=== PATIENT | female | born 1970 | race Caucasian/White ===

== ENCOUNTER 2016-09-05 15:45 | Emergency (ER) | payer OTHER ==
[~2016-09-05] VITALS: Ht 160 cm; Wt 60.3 kg
[2016-09-05] MEDS ORDERED: IBUPROFEN 600 MG TAB As Ordered ONE (17:04)
[2016-09-05] MEDS ORDERED: IBUPROFEN 600 MG TAB PO ONE (17:15)
--- NOTE | 2016-09-05 19:00 | REPUSA ---
CT of the abdomen and pelvis without contrast Clinical statement: Pain. Hematuria. Technique: Multiple axial CT images were obtained from the base of the lungs to the floor of the pelv is utilizing 5 mm axial slices without administration of contrast. Coronal and sagittal reconstructio ns were also obtained. No comparison is available. Findings: Chest: The visualized lung bases are clear. Abdomen: The kidneys are normal in size bilaterally. There is no evidence of hydronephrosis or nephro lithiasis. The liver, spleen, pancreas, and adrenal glands are unremarkable. The aorta demonstrates n ormal caliber and contour. There is no abdominal lymphadenopathy or ascites. Pelvis: The bowel is unremarkable, with no obstructive or inflammatory changes. Moderate sigmoid dive rticulosis is noted, without evidence of diverticulitis. The appendix is normal. The urinary bladder is within normal limits. There is no pelvic lymphadenopathy or ascites. The other pelvic structures a ppear unremarkable. Bones: There are no suspicious osseous abnormalities seen. Impression: Unremarkable CT examination of the abdomen and pelvis. No evidence of hydronephrosis or n ephrolithiasis. No other focal abnormalities.
[2016-09-05 19:25] VITALS: BP 115/69
== END 2016-09-05 19:28 | disposition home or self-care (01) ==
LOC: M ED 18:25
DX: S29.012A Strain of muscle and tendon of back wall of thorax, initial encounter (principal); X58.XXXA Exposure to other specified factors, initial encounter; Y92.89 Other specified places as the place of occurrence of the external cause; Y93.89 Activity, other specified; Y99.8 Other external cause status; F17.210 Nicotine dependence, cigarettes, uncomplicated; Z88.1 Allergy status to other antibiotic agents

== ENCOUNTER 2016-11-28 08:06 | Emergency (ER) | payer OTHER ==
[~2016-11-28] VITALS: Ht 160 cm; Wt 60.3 kg
[2016-11-28] MEDS ORDERED: AUGM875T28 PO (08:17)
[2016-11-28] MEDS ORDERED: KETOROLAC 60 MG/2 ML VIAL (J1885) IM ONE (08:30)
--- NOTE | 2016-11-28 09:17 | REP ---
Clinical: Left pelvic pain . Technique: Transabdominal pelvic ultrasound with color Doppler evaluation of the ovaries. Findings: Bladder is completely collapsed. Normal anteverted uterus measures 8.9 x 5.4 x 6.4 cm . The endometrial complex measures 8.0 mm thickness. No discrete uterine or endometrial abnormalities are appreciated. Bilateral ovaries are normal in appearance and vascularity without evidence for torsion. Right ovary measures 4.2 x 2.1 x 3.6 cm with 1.6 cm dominant follicle ; R I = 0.51 . Left ovary measures 3.7 x 2.0 x 2.5 cm ; R I = 0.61 . No pelvic fluid or adnexal mass lesion. Left lower quadrant pain may be related to non peristaltic bowel identified during examination. Impression: 1. Normal uterus and bilateral ovaries. No evidence for torsion. 2. The patient's pain may be related to prominent loop loop of bowel identified without peristalsis. Correlation is recommended and CT may be warranted for further investigation. Signed by Lee Spicer MD 11/28/2016 09:08 A
--- NOTE | 2016-11-28 09:56 | REP ---
Clinical: Left lower quadrant pain. Comparison: 09/05/2016. Findings: Mural thickening involving the proximal sigmoid colon with diverticula and pericolonic stranding is most compatible with acute diverticulitis (images 82 - 105). No obstruction. No free air to suggest perforation. No drainable collection/abscess noted. The remainder of the small large bowel is grossly unremarkable for the normal terminal ileum and appendix. Liver, spleen, pancreas, bilateral adrenal glands and kidneys are normal. The patient is status post cholecystectomy. Pelvis demonstrates normal bladder and age-appropriate uterus/adnexa. No ascites. No free air. No adenopathy. Abdominal aorta without aneurysm. Surrounding musculoskeletal structures are intact. Lung bases are clear. Impression: Acute sigmoid diverticulitis. No evidence for bowel obstruction, perforation, or drainable collection/abscess. Signed by Lee Spicer MD 11/28/2016 09:48 A
[2016-11-28] MEDS ORDERED: FLAG500T PO (10:31)
[2016-11-28] MEDS ORDERED: CIPR-249 PO (10:31)
[2016-11-28] MEDS ORDERED: ULTR50TA8 PO (10:31)
[2016-11-28] MEDS ORDERED: ZOFR4TAB3 PO (10:31)
[2016-11-28 10:37] VITALS: BP 103/64
== END 2016-11-28 10:37 | disposition home or self-care (01) ==
LOC: M ED 08:06
DX: K57.30 Diverticulosis of large intestine without perforation or abscess without bleeding (principal); F17.200 Nicotine dependence, unspecified, uncomplicated; Z88.1 Allergy status to other antibiotic agents

== ENCOUNTER 2017-04-24 20:26 | Emergency (ER) | payer OTHER ==
[~2017-04-24] VITALS: Ht 160 cm; Wt 59.1 kg
[~2017-04-24 20:26] MED LIST: AUGM875T28 PO; CIPR-249 PO; FLAG500T PO; ULTR50TA8 PO; ZOFR4TAB3 PO
[2017-04-24] MEDS ORDERED: NS 1,000 ML IV ONE (21:00)
[2017-04-24] MEDS ORDERED: ONDANSETRON 4MG/2ML VIAL (J2405) IV ONE (21:00)
[2017-04-24] MEDS ORDERED: MORPHINE 4 MG/ML 1ML SYRINGE IV PRN (21:00)
[2017-04-24] MEDS ORDERED: PANTOPRAZOLE 40MG INJ (PROTONIX) (C9113) IV ONE (21:00)
[2017-04-24 21:18] LABS: BASO % 0.3 % (0.0-1.0); EOS # 0.4 10^3/uL (0.0-0.50); EOS % 4.1 % (0.0-3.0); IMMATURE GRANULOCYTE % 0.3 % (0-0); LYMPH # 2.9 10^3/uL (1.5-4.5); MEAN CORPUSCULAR HEMOGLOBIN 32.3 pg (27.0-33.0); MONO # 0.6 10^3/uL (0.0-0.8); MONO % 6.3 % (0.0-5.0); NEUTROPHILS # 4.9 10^3/uL (1.8-7.7); PLATELET COUNT, AUTOMATED 276 10^3/uL (150-450); RED CELL DISTRIBUTION WIDTH 12.7 % (11.5-14.5); WHITE BLOOD COUNT 8.8 10^3/uL (4.0-10.0)
[2017-04-24 21:28] LABS: INR 0.94
[2017-04-24 21:45] LABS: ALBUMIN 3.5 GM/DL (3.2-5.2); ALBUMIN/GLOBULIN RATIO 1.21 (1.00-1.93); ALKALINE PHOSPHATASE 36 U/L (45-117); ALT/SGPT 19 U/L (12-78); ANION GAP 4 MEQ/L (8-16); AST/SGOT 9 U/L (7-37); BILIRUBIN,DIRECT 0.1 MG/DL (0.0-0.2); BILIRUBIN,TOTAL 0.4 MG/DL (0.2-1.0); BLOOD UREA NITROGEN 8 MG/DL (7-18); CALCIUM LEVEL 8.5 MG/DL (8.5-10.1); CARBON DIOXIDE LEVEL 31 MEQ/L (21-32); CHLORIDE LEVEL 105 MEQ/L (98-107); CREATININE FOR GFR 0.49 MG/DL (0.55-1.02); GLOMERULAR FILTRATION RATE > 60.0 (>58); GLUCOSE, FASTING 98 MG/DL (70-105); POTASSIUM SERUM 4.2 MEQ/L (3.5-5.1); SODIUM LEVEL 140 MEQ/L (136-145); TOTAL PROTEIN 6.4 GM/DL (6.4-8.2)
--- NOTE | 2017-04-24 22:30 | REPUSA ---
CT of the abdomen and pelvis without contrast Clinical statement: Pain. Technique: Multiple axial CT images were obtained from the base of the lungs to the floor of the pelv is utilizing 5 mm axial slices without administration of contrast. Coronal and sagittal reconstructio ns were also obtained. Comparison: 09/05/2016. Findings: Chest: The visualized lung bases are clear. Abdomen: The kidneys are normal in size bilaterally. There is no evidence of hydronephrosis or nephro lithiasis. The liver, spleen, pancreas, and adrenal glands are unremarkable. The aorta demonstrates n ormal caliber and contour. There is no abdominal lymphadenopathy or ascites. Pelvis: The bowel is unremarkable, with no obstructive or inflammatory changes. The appendix is concetta l. The urinary bladder is within normal limits. There is no pelvic lymphadenopathy or ascites. The ot her pelvic structures appear unremarkable. Bones: There are no suspicious osseous abnormalities seen. Impression: Unremarkable CT examination of the abdomen and pelvis.
[2017-04-24] MEDS ORDERED: PROT1TAB2 PO (23:08)
[2017-04-24] MEDS ORDERED: ZOFR4TAB3 PO (23:08)
[2017-04-24 23:17] VITALS: BP 110/56
== END 2017-04-24 23:22 | disposition home or self-care (01) ==
LOC: M ED 20:26
DX: K52.9 Noninfective gastroenteritis and colitis, unspecified (principal); K57.90 Diverticulosis of intestine, part unspecified, without perforation or abscess without bleeding; F17.200 Nicotine dependence, unspecified, uncomplicated; Z88.1 Allergy status to other antibiotic agents
CPT/HCPCS: 36415; 74176; 80048; 80076; 81001; 83690; 85025; 85610; 87086; 96361; 96374; 96375; 99284; C9113; J2405

== ENCOUNTER → 2018-06-09 | Outpatient (REF) ==
[~2018-06-09] MED LIST changes: +PROT1TAB2 PO; +ZOFR4TAB14 PO; -ZOFR4TAB3 PO
[2018-06-09 13:33] LABS: RUBELLA IgG QUALITATIVE IMMUNE (IMMUNE)
== END ==
LOC: M LAB 12:04
PROVIDERS: ATTEND Nurse Practitioner Adult Health
DX: Z02.89 Encounter for other administrative examinations (principal)

== ENCOUNTER → 2018-06-11 | Outpatient (REF) | payer OTHER | LOC: M SFHCWAGY 09:38 | PROVIDERS: ATTEND Nurse Practitioner Women's Health | DX: Z12.4 Encounter for screening for malignant neoplasm of cervix (principal); R87.5 Abnormal microbiological findings in specimens from female genital organs ==

== ENCOUNTER → 2018-06-14 | Outpatient (CLI) | payer OTHER ==
--- NOTE | 2018-06-14 18:53 | REPMRS ---
Patient History The patient states she had a clinical breast exam in 06/2018. No known family history of cancer. Digital Woman Screen Mammo: June 14, 2018 - Exam #: [id number] Bilateral CC and MLO view(s) were taken. Technologist: Sallie Varghese Technologist FINDINGS: There are scattered fibroglandular densities. There is a 1.1 cm well-circumscribed oval-shaped nodule in the upper outer quadrant of the right breast which merits further evaluation. This may be a lymph node. There is no other evidence of dominant mass, architectural distortion, or clustered microcalcification typical of malignancy. 3-D tomosynthesis shows no additional findings. Assessment: BI-RADS/ACR category 0 mammogram, incomplete. BIRADS/ACR category zero mammogram, incomplete. Additional imaging and/or prior images needed. Recommendation Ultrasound and special view mammogram of the right breast. This patient's Lifetime Breast Cancer RIsk is estimated at 13.4 %. This mammogram was interpreted with the aid of an FDA-approved computer-aided dectection system. Electronically Signed By: Arthur Torres MD 06/14/18 [id number]
--- NOTE | 2018-06-15 05:43 | REP ---
Clinical: Pelvic pain and abnormal menstrual cycles. Technique: Transabdominal pelvic ultrasound followed by transvaginal examination for better evaluation of the endometrium and adnexa with color Doppler evaluation of the ovaries. Findings: Bladder is unremarkable and measures 11.7 x 10.1 x 5.3 cm. Normal anteverted uterus measures 9.5 x 4.5 x 5.6 cm. The endometrial complex measures 5.9 mm thickness. No discrete uterine or endometrial abnormalities are appreciated. Incidental subcentimeter Nabothian cysts identified. Bilateral ovaries are normal in appearance and vascularity without evidence for torsion. Right ovary measures 3.3 x 2.3 x 3.0 cm with 2.1 cm physiologic cyst; R I = 0.57. Left ovary measures 2.2 x 0.9 x 1.4 cm; R I = 0.51. No pelvic fluid or adnexal mass lesion noted . Impression: 1. Subcentimeter Nabothian cysts noted. 2. Otherwise normal pelvic ultrasound.
== END ==
LOC: M WHC 10:54
PROVIDERS: ATTEND Nurse Practitioner Women's Health
DX: R92.2 Inconclusive mammogram (principal); N88.8 Other specified noninflammatory disorders of cervix uteri; N92.1 Excessive and frequent menstruation with irregular cycle; N92.0 Excessive and frequent menstruation with regular cycle; N94.10 Unspecified dyspareunia

== ENCOUNTER → 2018-06-18 | Outpatient (CLI) | payer OTHER ==
--- NOTE | 2018-06-18 18:41 | REP ---
Digital diagnostic unilateral right breast mammography with CAD and focused right breast sonography: History: Initial screening mammography was BIRADS category 0 because of a well-circumscribed 12 mm nodule in the upper outer quadrant of the right breast. Diagnostic imaging was recommended. Mammographic findings: Magnified focal spot compression CC, true ML, and MLO views of the right breast were obtained. A well-circumscribed 11 mm nodule is confirmed. It is relatively low in attenuation. No spiculation or microcalcification is seen. No other mammographic finding. Sonographic findings: The right breast is scanned from 9 o'clock to 12 o'clock through the upper outer quadrant. At the nipple, there are one or two prominent ducts. At 11 o'clock, 6 cm from the nipple there is an isoechoic area 1.0 x 0.8 x 0.5 cm. It is not clear that this corresponds with the mammographic opacity as it is isoechoic and most likely is just a normal breast lobule. No cyst, node or mass is seen. Impression: BIRADS category 4 suspicious right breast imaging. Mammographically apparent nodule upper outer quadrant right breast with no definite sonographic correlate. Stereotactic needle biopsy is recommended. BI-RADS/ACR category 4 mammogram. Suspicious abnormality - biopsy should be considered. Usually requires biopsy. This mammogram was interpreted with the aid of an FDA-approved computer-aided detection system. The patient states she had a clinical breast exam in June 2018. The patient letter being requested is m4 . Electronically Signed by Chay Torres MD 06/18/2018 08:07 P
== END ==
LOC: M RAD 14:08
PROVIDERS: ATTEND Nurse Practitioner Women's Health
DX: R92.2 Inconclusive mammogram (principal)

== ENCOUNTER → 2018-06-19 | Outpatient (REF) | payer OTHER | LOC: M LAB REF 14:36 | PROVIDERS: ATTEND Physician Assistant | DX: J02.9 Acute pharyngitis, unspecified (principal) ==

== ENCOUNTER → 2018-06-28 | Outpatient (REF) | payer OTHER | LOC: M SFHCWAGY 15:04 | PROVIDERS: ATTEND Nurse Practitioner Women's Health | DX: R87.613 High grade squamous intraepithelial lesion on cytologic smear of cervix (HGSIL) (principal); R87.810 Cervical high risk human papillomavirus (HPV) DNA test positive ==

== ENCOUNTER 2018-09-10 09:26 | Day surgery (SDC) | payer OTHER ==
[~2018-09-10] VITALS: Ht 162.6 cm; Wt 66.6 kg
[~2018-09-10 09:26] MED LIST changes: +MELA10CA PO
[2018-09-10 10:08] LABS: HEMATOCRIT 46.9 % (36.0-47.0); HEMOGLOBIN 15.8 g/dl (12.0-15.5); MEAN CORPUSCULAR HGB CONC 33.7 g/dl (32.0-36.5); MEAN CORPUSCULAR VOLUME 94.9 fl (80.0-96.0); PLATELET COUNT, AUTOMATED 312 10^3/uL (150-450); RED BLOOD COUNT 4.94 10^6/uL (4.00-5.40); WHITE BLOOD COUNT 10.3 10^3/uL (4.0-10.0)
[2018-09-10] MEDS ORDERED: LR 1,000 ML IV ONE (10:30)
[2018-09-10] MEDS ORDERED: PROPOFOL 200 MG/20 ML VIAL As Ordered ONE (10:47)
[2018-09-10] MEDS ORDERED: LIDOCAINE 2% INJ 100 MG/5 ML SDV (FOR ANES.) As Ordered ONE (10:47)
[2018-09-10] MEDS ORDERED: dexameTHASONE 4 MG/ML 1ML VIAL (J1100) As Ordered ONE (10:47)
[2018-09-10] MEDS ORDERED: ONDANSETRON 4MG/2ML VIAL (J2405) As Ordered ONE (10:47)
[2018-09-10] MEDS ORDERED: ROCURONIUM BROMIDE 50 MG/5 ML VIAL As Ordered ONE (10:47)
[2018-09-10] MEDS ORDERED: fentaNYL 250 MCG/5 ML INJECTION (J3010) As Ordered ONE (10:48)
[2018-09-10] MEDS ORDERED: MIDAZOLAM INJ 2 MG/2 ML VIAL (J2250) As Ordered ONE (10:48)
[2018-09-10] MEDS ORDERED: METHYLENE BLUE 0.5% (5MG/ML) 10 ML AMP (PROVAYBLUE)(Q9968 PER 1MG) As Ordered ONE ×2 (11:36→11:41)
[2018-09-10] MEDS ORDERED: BUPIVACAINE HCL 0.25% 10 ML VIAL As Ordered ONE (11:36)
[2018-09-10] MEDS ORDERED: OXYC1TAB23 PO (11:38)
[2018-09-10 11:40] VITALS: BP 129/76
[2018-09-10] MEDS ORDERED: IBUP-1022 PO (11:40)
[2018-09-10] MEDS ORDERED: SUGAMMADEX SODIUM 500 MG/5 ML VIAL (BRIDION) As Ordered ONE (12:29)
[2018-09-10] MEDS ORDERED: KETOROLAC 60 MG/2 ML VIAL (J1885) As Ordered ONE (12:52)
[2018-09-10] MEDS ORDERED: LR 1,000 ML IV SCH ×2 (13:30)
[2018-09-10] MEDS ORDERED: MORPHINE 4 MG/ML 1ML VIAL/SYRINGE (J2270) IV PRN (13:30)
[2018-09-10] MEDS ORDERED: PERCOCET 5MG/325MG TAB PO PRN (13:30)
[2018-09-10] MEDS ORDERED: KETOROLAC 30 MG/ML VIAL (J1885) IV PRN (13:30)
[2018-09-10] MEDS ORDERED: ONDANSETRON 4MG/2ML VIAL (J2405) IV PRN ×2 (13:30)
[2018-09-10] MEDS ORDERED: HYDROMORPHONE HCL 0.5 MG/ 0.5 ML SYRINGE (J1170 PER 1) IV PRN (13:30)
[2018-09-10] MEDS: PERCOCET 5MG/325MG TAB PO PRN ×3 (13:45→20:52)
[2018-09-10] MEDS: fentaNYL 100 MCG/2 ML INJECTION (J3010) IV PRN ×4 (13:45→14:00)
[2018-09-10 15:10] VITALS: BP 158/84
[2018-09-10 15:40] VITALS: BP 116/64
[2018-09-10 16:40] VITALS: BP 111/67
[2018-09-10 17:30] VITALS: BP 112/63
--- NOTE | 2018-09-10 17:51 | RO ---
DATE OF PROCEDURE: 09/10/2018 PREPROCEDURE DIAGNOSES: Menorrhagia, severe cervical dysplasia. POSTPROCEDURE DIAGNOSES: Menorrhagia, severe cervical dysplasia. OPERATIVE PROCEDURES: Robotic assisted laparoscopic hysterectomy, bilateral salpingectomy. SURGEON: Toi Matthews MD CORRECTIONAL OFFICER: Tamar Vergara NP ANESTHESIA: General endotracheal. ESTIMATED BLOOD LOSS: 100 mL. URINE OUTPUT: 100 mL. FINDINGS: Normal uterus. Fallopian tubes with evidence of prior tubal sterilization. Normal ovaries. DESCRIPTION OF PROCEDURE: The patient was taken to the operating room where general endotracheal anesthesia was induced. She was prepped and draped in a sterile fashion in the dorsal lithotomy position. A Hassan catheter was placed. A VCare uterine manipulator was placed. A periumbilical incision was made with a scalpel. A Veress needle was placed through this incision while tenting up on the skin of the abdomen. Intraabdominal location of the Veress needle was assessed with the use of saline filled syringe. The pneumoperitoneum was created. The Veress needle was removed. An 8 mm trocar using NONO was inserted through this incision. Three 8 mm suprapubic ports were placed under direct visualization. The patient was placed in Trendelenburg position. The Da Wilma surgical robot was docked to the ports. Using the bipolar fenestrated device as well as the Vessel Sealer, broad ligament attachments at the fallopian tubes were coagulated and incised. The utero-ovarian ligaments and round ligaments were coagulated and incised. The anterior and posterior leaves of the broad ligament were . A bladder flap was created. The uterine vessels were coagulated and incised. Colpotomy was created with the Monopolar Endo Lakhwinder in the upper vagina at the level of the VCare cup. This was extended circumferentially around the upper vagina. Specimen containing the uterus, cervix, and both fallopian tubes was removed through the vagina. The vaginal cuff was closed with #1 V-Loc suture in a running fashion. The pelvis was irrigated with good hemostasis noted. The patient was given methylene blue dye intravenously. Cystoscopy was performed using the 70 degrees cystoscope. Bilateral ureteral jets were identified. There was no evidence of injury to the bladder. All instruments were removed. Sponge, instrument and needle counts were correct. Tamar Vergara NP assisted in all aspects of the procedure from beginning to end. She assisted with positioning the patient, insertion of the ports. She manipulated the uterus throughout the procedure, removed the specimens at the end of the procedure and subsequently helped to close and move the patient.
[2018-09-10] MEDS: DOCUSATE SODIUM 100 MG CAP PO SCH (20:51)
[2018-09-10 22:00] VITALS: BP 120/63
[2018-09-11] MEDS: PERCOCET 5MG/325MG TAB PO PRN ×2 (04:17→09:10)
[2018-09-11 06:00] VITALS: BP 89/51
[2018-09-11] MEDS: DOCUSATE SODIUM 100 MG CAP PO SCH (09:09)
== END 2018-09-11 11:01 | disposition home or self-care (01) ==
LOC: M SDC 09:26 → M MSPAV 14:34 → M SDC 09-11 11:01
PROVIDERS: ATTEND Specialist
DX: D06.9 Carcinoma in situ of cervix, unspecified (principal); N92.0 Excessive and frequent menstruation with regular cycle; N72 Inflammatory disease of cervix uteri; Z72.0 Tobacco use; Z88.1 Allergy status to other antibiotic agents
CPT/HCPCS: 36415; 58571; 85027; 86850; 86900; 86901; 88307; J0690; J1100; J1885; J2250; J2405; J3010; Q9968

== ENCOUNTER → 2019-04-27 | Outpatient (REF) | payer OTHER ==
[~2019-04-27] MED LIST changes: +IBUP-1022 PO; +OXYC1TAB23 PO
== END ==
LOC: M LAB REF 15:58
PROVIDERS: ATTEND Physician Assistant
DX: J03.90 Acute tonsillitis, unspecified (principal)

== ENCOUNTER → 2019-05-13 | Outpatient (REF) | payer OTHER ==
[2019-05-13 13:47] LABS: BASO # 0.1 10^3/uL (0.0-0.2); BASO % 0.5 % (0.0-1.0); EOS # 0.3 10^3/uL (0.0-0.5); EOS % 2.4 % (0.0-3.0); HEMATOCRIT 47.3 % (36.0-47.0); HEMOGLOBIN 14.9 g/dl (12.0-15.5); LYMPH # 2.8 10^3/uL (1.5-5.0); LYMPH % 26.9 % (24.0-44.0); MEAN CORPUSCULAR HEMOGLOBIN 31.2 pg (27.0-33.0); MEAN CORPUSCULAR HGB CONC 31.5 g/dl (32.0-36.5); MONO # 0.4 10^3/uL (0.0-0.8); MONO % 3.9 % (0.0-5.0); NEUTROPHILS # 6.9 10^3/uL (1.5-8.5); NEUTROPHILS % 65.9 % (36.0-66.0); PLATELET COUNT, AUTOMATED 458 10^3/uL (150-450); RED BLOOD COUNT 4.78 10^6/uL (4.00-5.40); WHITE BLOOD COUNT 10.5 10^3/uL (4.0-10.0)
[2019-05-15 00:06] LABS: CYTOMEGALOVIRUS IgM ANTIBODY <30.0 AU/mL (0.0-29.9); EBV VIRAL CAPSID AG IgG >600.0 U/mL (0.0-17.9); EBV VIRAL CAPSID AG IgM <36.0 U/mL (0.0-35.9)
== END ==
LOC: M LABDRWAD 12:27
PROVIDERS: ATTEND Physician Assistant
DX: R53.83 Other fatigue (principal)

== ENCOUNTER → 2022-06-10 | Outpatient (CLI) | payer OTHER ==
[2022-06-10 07:45] LABS: BASO % 0.3 % (0.0-1.0); EOS # 0.2 10^3/uL (0.0-0.5); EOS % 2.7 % (0.0-3.0); HEMATOCRIT 41.1 % (36.0-47.0); HEMOGLOBIN 13.5 g/dl (12.0-15.5); LYMPH # 2.3 10^3/uL (1.5-5.0); LYMPH % 36.3 % (24.0-44.0); MEAN CORPUSCULAR HEMOGLOBIN 30.9 pg (27.0-33.0); MEAN CORPUSCULAR HGB CONC 32.8 g/dl (32.0-36.5); MEAN CORPUSCULAR VOLUME 94.1 fl (80.0-96.0); MONO # 0.4 10^3/uL (0.0-0.8); MONO % 6.4 % (2.0-8.0); NEUTROPHILS # 3.4 10^3/uL (1.5-8.5); NEUTROPHILS % 54.1 % (36.0-66.0); PLATELET COUNT, AUTOMATED 250 10^3/uL (150-450); RED BLOOD COUNT 4.37 10^6/uL (4.00-5.40); WHITE BLOOD COUNT 6.3 10^3/uL (4.0-10.0)
[2022-06-10 08:09] LABS: ALBUMIN 3.8 G/DL (3.2-5.2); ALKALINE PHOSPHATASE 43 U/L (46-116); ALT/SGPT 16 U/L (7.0-40); AST/SGOT 11 U/L (<34); BILIRUBIN,TOTAL 0.8 MG/DL (0.3-1.2); BLOOD UREA NITROGEN 13 MG/DL (9-23); CALCIUM LEVEL 9.4 MG/DL (8.5-10.1); CARBON DIOXIDE LEVEL 30 MMOL/L (20-31); CHLORIDE LEVEL 104 MMOL/L (98-107); CHOLESTEROL LEVEL 210 MG/DL (<200); CHOLESTEROL RISK RATIO 4.02 (<5); CREATININE FOR GFR 0.67 MG/DL (0.55-1.30); GLOMERULAR FILTRATION RATE > 60.0 (>51); GLUCOSE, FASTING 95 MG/DL (60-100); HDL CHOLESTEROL 52.2 MG/DL (>40); LDL CHOLESTEROL 137.6 MG/DL (<100); NON-HDL-C 158 MG/DL; POTASSIUM SERUM 5.2 MMOL/L (3.5-5.1); SODIUM LEVEL 138 MMOL/L (136-145); TOTAL PROTEIN 6.7 G/DL (5.7-8.2); TRIGLYCERIDES LEVEL 101 MG/DL (<150)
[2022-06-10 08:10] LABS: FREE T4 1.02 NG/DL (0.89-1.76); THYROID STIMULATING HORMONE 1.445 uIU/ML (0.55-4.78)
[2022-06-10 08:11] LABS: LUTEINIZING HORMONE 75.5 mIU/ML; PROLACTIN 6.07 NG/ML; TOTAL 25(OH) VITAMIN D 20.4 NG/ML (20.0-100.0)
== END ==
LOC: M LAB 07:12
PROVIDERS: ATTEND Physician Assistant
DX: R23.2 Flushing (principal); Z83.3 Family history of diabetes mellitus; Z68.26 Body mass index [BMI] 26.0-26.9, adult

== ENCOUNTER 2022-07-05 17:00 | Emergency (ER) | payer OTHER ==
[~2022-07-05] VITALS: Ht 160 cm; Wt 65.0 kg
[2022-07-05] MEDS ORDERED: ONDANSETRON 4MG 2ML VIAL IV ONE (17:25)
[2022-07-05] MEDS ORDERED: NS 1,000 ML IV ONE ×2 (17:25→19:50)
[2022-07-05] MEDS ORDERED: MORPHINE 4 MG/ML 1ML VIAL IV ONE ×2 (17:25→19:10)
[2022-07-05 18:14] LABS: BASO % 0.2 % (0.0-1.0); EOS # 0.1 10^3/uL (0.0-0.5); HEMATOCRIT 46.2 % (36.0-47.0); HEMOGLOBIN 15.3 g/dl (12.0-15.5); LYMPH # 0.6 10^3/uL (1.5-5.0); LYMPH % 5.8 % (24.0-44.0); MEAN CORPUSCULAR HEMOGLOBIN 31.2 pg (27.0-33.0); MEAN CORPUSCULAR HGB CONC 33.1 g/dl (32.0-36.5); MEAN CORPUSCULAR VOLUME 94.3 fl (80.0-96.0); MONO # 0.6 10^3/uL (0.0-0.8); MONO % 5.6 % (2.0-8.0); NEUTROPHILS # 9.4 10^3/uL (1.5-8.5); PLATELET COUNT, AUTOMATED 276 10^3/uL (150-450); WHITE BLOOD COUNT 10.8 10^3/uL (4.0-10.0)
[2022-07-05] MEDS ORDERED: ISOVUE-370 76% 100ML VIAL As Ordered ONE (18:24)
[2022-07-05 18:39] LABS: ALBUMIN 3.9 G/DL (3.2-5.2); BILIRUBIN,DIRECT 0.4 MG/DL (<0.4); BILIRUBIN,TOTAL 1.7 MG/DL (0.3-1.2); TOTAL PROTEIN 7.3 G/DL (5.7-8.2)
[2022-07-05 18:45] LABS: RSV AMPLIFICATION NEGATIVE (NEGATIVE)
[2022-07-05] MEDS ORDERED: CIPROFLOXACIN 500MG TABLET PO ONE (19:10)
[2022-07-05] MEDS ORDERED: metroNIDAZOLE (FLAGYL) 500MG TABLET PO ONE (19:10)
[2022-07-05] MEDS ORDERED: CIPR-249 PO (19:25)
[2022-07-05] MEDS ORDERED: PERC5TAB12 PO (19:25)
[2022-07-05] MEDS ORDERED: METR-265 PO (19:25)
[2022-07-05 19:55] VITALS: BP 110/60
[2022-07-05] MEDS ORDERED: OXYCODONE/APAP 5MG/325MG(HOME DOSE PACK) PO ONE (20:25)
== END 2022-07-05 20:59 | disposition home or self-care (01) ==
LOC: M ED 17:00
DX: K57.30 Diverticulosis of large intestine without perforation or abscess without bleeding (principal); K52.9 Noninfective gastroenteritis and colitis, unspecified; F17.200 Nicotine dependence, unspecified, uncomplicated; F10.10 Alcohol abuse, uncomplicated; Z88.1 Allergy status to other antibiotic agents; Z91.018 Allergy to other foods; Z79.2 Long term (current) use of antibiotics; Z79.899 Other long term (current) drug therapy
CPT/HCPCS: 74177; 80047; 80076; 83605; 83690; 85025; 87631; 96361; 96374; 96375; 99284; J2270; J2405

== ENCOUNTER 2022-09-04 07:31 | Day surgery (SDC) | payer OTHER ==
[~2022-09-04] VITALS: Ht 160 cm; Wt 67.1 kg
[~2022-09-04 07:31] MED LIST changes: +LIDOCAINE 2% 100MG/5ML SDV (FOR ANES.) As Ordered ONE; +METR-265 PO; +NS 1,000 ML IV ONE; +PERC5TAB12 PO; +[UNRECOGNIZED DRUG - OTHER] PO; +propofoL 200 MG/20 ML VIAL As Ordered ONE
[2022-09-04 09:08] VITALS: BP 98/67
== END 2022-09-04 09:23 | disposition home or self-care (01) ==
LOC: M OPP 07:31
PROVIDERS: ATTEND Surgery
DX: K64.2 Third degree hemorrhoids (principal); K57.30 Diverticulosis of large intestine without perforation or abscess without bleeding; K57.32 Diverticulitis of large intestine without perforation or abscess without bleeding; K52.89 Other specified noninfective gastroenteritis and colitis; Z88.2 Allergy status to sulfonamides; Z91.018 Allergy to other foods

== ENCOUNTER → 2022-09-10 | Outpatient (CLI) | payer OTHER ==
[~2022-09-10] MED LIST changes: -LIDOCAINE 2% 100MG/5ML SDV (FOR ANES.) As Ordered ONE; -NS 1,000 ML IV ONE; -propofoL 200 MG/20 ML VIAL As Ordered ONE
== END ==
LOC: M ADAMS 14:26
PROVIDERS: ATTEND Physician Assistant
DX: M25.511 Pain in right shoulder (principal)

== ENCOUNTER → 2022-10-02 | Outpatient (CLI) | payer OTHER | LOC: M RAD 10:39 | PROVIDERS: ATTEND Orthopaedic Surgery | DX: M25.511 Pain in right shoulder (principal); M67.813 Other specified disorders of tendon, right shoulder; M25.711 Osteophyte, right shoulder ==

== ENCOUNTER 2023-01-06 13:21 | Emergency (ER) | payer OTHER ==
[~2023-01-06] VITALS: Ht 162.6 cm; Wt 71.8 kg
[2023-01-06] MEDS ORDERED: ISOVUE-370 76% 100ML VIAL As Ordered ONE (14:33)
[2023-01-06 14:41] LABS: BASO % 0.3 % (0.0-1.0); EOS # 0.1 10^3/uL (0.0-0.5); EOS % 1.9 % (0.0-3.0); HEMATOCRIT 39.9 % (36.0-47.0); HEMOGLOBIN 13.6 g/dl (12.0-15.5); LYMPH # 2.3 10^3/uL (1.5-5.0); LYMPH % 32.7 % (24.0-44.0); MEAN CORPUSCULAR HEMOGLOBIN 32.1 pg (27.0-33.0); MEAN CORPUSCULAR HGB CONC 34.1 g/dl (32.0-36.5); MEAN CORPUSCULAR VOLUME 94.1 fl (80.0-96.0); MONO # 0.4 10^3/uL (0.0-0.8); MONO % 6.1 % (2.0-8.0); NEUTROPHILS # 4.1 10^3/uL (1.5-8.5); NEUTROPHILS % 58.6 % (36.0-66.0); PLATELET COUNT, AUTOMATED 277 10^3/uL (150-450); RED BLOOD COUNT 4.24 10^6/uL (4.00-5.40); WHITE BLOOD COUNT 6.9 10^3/uL (4.0-10.0)
[2023-01-06 14:59] LABS: INR 0.85; PROTHROMBIN TIME 11.8 SECONDS (12.5-14.5)
[2023-01-06 15:00] LABS: LIPASE 38 U/L (12-53)
[2023-01-06 15:02] LABS: ALBUMIN 3.5 G/DL (3.2-5.2); ALKALINE PHOSPHATASE 55 U/L (46-116); ALT/SGPT 79 U/L (7.0-40); AST/SGOT 94 U/L (<34); BILIRUBIN,DIRECT 0.2 MG/DL (<0.4); BILIRUBIN,TOTAL 0.7 MG/DL (0.3-1.2); BLOOD UREA NITROGEN 7 MG/DL (9-23); CALCIUM LEVEL 8.7 MG/DL (8.5-10.1); CARBON DIOXIDE LEVEL 30 MMOL/L (20-31); CHLORIDE LEVEL 103 MMOL/L (98-107); CK-MB VALUE MASS < 1.0 NG/ML (<3.6); CREATININE FOR GFR 0.54 MG/DL (0.55-1.30); GLOMERULAR FILTRATION RATE > 60.0 (>51); GLUCOSE, FASTING 98 MG/DL (60-100); SODIUM LEVEL 140 MMOL/L (136-145); TOTAL PROTEIN 6.5 G/DL (5.7-8.2)
[2023-01-06 15:04] LABS: CPK CREATINE PHOSPHOKINASE 65 U/L (34-145); MB/CK RELATIVE INDEX 1.53 (< OR =4)
[2023-01-06 17:51] VITALS: BP 110/61; TEMP 98.5; O2SAT 98
== END 2023-01-06 18:02 | disposition home or self-care (01) ==
LOC: M ED 13:21
DX: R07.9 Chest pain, unspecified (principal); Z87.891 Personal history of nicotine dependence; Z79.01 Long term (current) use of anticoagulants; Z91.018 Allergy to other foods
CPT/HCPCS: 71045; 71275; 76705; 80047; 80048; 80076; 82550; 82553; 83690; 85025; 85610; 93005; 93041; 94760; 99285; Q9967